=== PATIENT | male | born 1975 | race Caucasian/White ===

== ENCOUNTER 2016-08-04 12:55 | Inpatient (IN) | payer OTHER ==
[~2016-08-04] VITALS: Ht 167.6 cm; Wt 91.6 kg
[2016-08-04 13:12] VITALS: BP 109/68
--- NOTE | 2016-08-04 14:41 | NUR ---
Pt brought from US via w/c and placed into bed 8.
--- NOTE | 2016-08-04 14:46 | NUR ---
41/M presents to ED for evaluation of right testicle pain x 4 days. Pt describes the swelling and pain as a sudden onset. Denies any injury. Pt c/o 8/10 pain, 10/10 when ambulating, throbbing, radiating to right groin, constant pain. Pt also reports having an umbilical hernia. Denies N/V/D. Denies any painful or burning urination. Pt is AOX4, ambulatory with steady gait. Pt states "I was being stubborn and didn't want to come." VSS. is at bedside. Hx umbilical hernia
--- NOTE | 2016-08-04 14:53 | NUR ---
Patient placed into a gown and in position of comfort. Awaiting ERMD.
--- NOTE | 2016-08-04 15:24 | NUR ---
Patient being evaluated by Dr. Sellers at bedside.
[2016-08-04] MEDS ORDERED: CIPROFLOXACIN 250 MG TAB PO ONE (15:35)
--- NOTE | 2016-08-04 15:52 | NUR ---
Pt ambulated to restroom to provide UA.
[2016-08-04] MEDS ORDERED: HYDROmorphone 1 MG/ML AMP IVP ONE ×2 (15:55→16:45)
--- NOTE | 2016-08-04 15:59 | NUR ---
Dr. Sellers speaking with patient at bedside after consulting with urologist.
--- NOTE | 2016-08-04 16:40 | NUR ---
Pt is feeling much better and pain is now 0/10. Dr. Sellers had spoken with patient and gave him the option of being admitted for pain control or going home. Pt is requesting to be admitted for pain control. Dr. Sellers made aware. I informed the patient that we would start the process of admitting him. Pt and his verbalized understanding.
[2016-08-04] MEDS ORDERED: DOCUSATE SODIUM 100 MG GELCAP PO PRN (16:55)
[2016-08-04] MEDS ORDERED: ONDANSETRON 4 MG/2 ML VIAL IVP PRN (17:15)
[2016-08-04] MEDS ORDERED: HYDROcodone/APAP 7.5/325 MG 1 TAB PO PRN (17:15)
[2016-08-04] MEDS ORDERED: ZOLPIDEM 5 MG TAB PO PRN (17:15)
--- NOTE | 2016-08-04 17:19 | NUR ---
X-Ray at bedside.
--- NOTE | 2016-08-04 17:35 | NUR ---
Patient will be admitted to care of Dr. Khalil. Admited to TELE. Will go to room 122-B. Belongings list completed. Report to Aba ROE.
--- NOTE | 2016-08-04 17:35 | NUR ---
REPORT RECEIVED BY PHONE FROM REMOTE SENSING SCIENTIST. PT TO BE ADMITTED TO 122B ON TELEMETRY.
--- NOTE | 2016-08-04 18:10 | NUR ---
PT NOTED TO BE AAOX4 AND VOICED NO C/O PAIN. PT PUT ON TELE#21 , VITAL SIGNS STABLE. T97.8 HR 64 RR-18 BP 123/74 O2 SAT 97% ON ROOM AIR AND NO C/O PAIN VOICED AT THIS TIME. PT ORIENTATED TO STAFF, UNIT AND ROUTINE AND PT VERBALIZED UNDERSTANDING. DR. WALLACE WAS IN TO SEE PT AND LEFT ORDERS.
--- NOTE | 2016-08-04 19:10 | NUR ---
REPORT GIVEN TO FRANCHESCA ROE. PT AAOX4 AND VOICED NO C/O PAIN AT THIS TIME.
--- NOTE | 2016-08-04 19:12 | NUR ---
RECEIVED REPORT FROM DAY RN FOR CONTINUITY OF CARE. PATIENT IS A&OX4, DISCUSSED PLAN OF CARE WITH PATIENT, VERBALIZED UNDERSTANDING. SHIFT ASSESSMENT DONE, VS TAKEN, STABLE. NO S/S OF RESPIRATORY DISTRESS NOTED ON ROOM AIR. PATIENT DENIES PAIN AT THIS TIME. IV TO LEFT HAND 20 GAUGE PATENT AND INFUSING FLUIDS WELL. SKIN INTACT. MRSA SWAB COLLECTED. SAFETY PRECAUTIONS ENFORCED. CALL LIGHT WITHIN REACH. AT BEDSIDE. WILL CONTINUE TO MONITOR
[2016-08-04 20:00] VITALS: BP_SYST 105; BP_SYST 123; BP_DIAS 62; BP_DIAS 93
[2016-08-04] MEDS: NACL 0.9% 1,000 ML IV SCH ×2 (21:01→23:30)
[2016-08-04] MEDS: HYDROmorphone 1 MG/ML AMP IVP PRN (21:20)
--- NOTE | 2016-08-04 21:20 | NUR ---
PT C/O PAIN TO GROIN AREA, MEDICATED PER MD ORDER. VS STABLE. WILL CONTINUE TO MONITOR.
--- NOTE | 2016-08-04 22:26 | NUR ---
SPOKE WITH FRANNIE FROM [facility], PER PT HE DOES NOT HAVE FULL BLADDER AT THIS TIME. INFORMED [facility] THEY WILL RESCHEDULE FOR AM. WILL FOLLOW UP WITH .
[2016-08-04] MEDS ORDERED: MAGNESIUM OXIDE 400 MG TAB PO SCH (22:30)
--- NOTE | 2016-08-04 22:59 | NUR ---
SPOKE WITH DR. AVILA REGARDING [facility] BEING RESCHEDULED TO AM. DOCTOR AWARE, VERBALIZED AGREEMENT.
[2016-08-05] VITALS: BP 105/62
--- NOTE | 2016-08-05 00:08 | NUR ---
VS TAKEN, STABLE. PT IS NOW SLEEPING. CALL LIGHT WITHIN REACH.
--- NOTE | 2016-08-05 02:03 | NUR ---
PT IS SLEEPING. NO S/S OF DISTRESS OR DISCOMFORT NOTED. CALL LIGHT IN REACH.
--- NOTE | 2016-08-05 03:48 | NUR ---
PT AMBULATED TO RESTROOM, VOIDED. PT C/O HEADACHE MEDICATED WITH NORCO PER MD ORDER. NOW IN BED RESTING. WILL CONTINUE TO MONITOR.
[2016-08-05 04:00] VITALS: BP 103/57
--- NOTE | 2016-08-05 06:05 | NUR ---
PT IS AWAKE WATCHING TELEVISION. NO S/S OF DISTRESS OR DISCOMFORT NOTED. WILL CONTINUE TO MONITOR.
--- NOTE | 2016-08-05 07:10 | NUR ---
ENDORSED PATIENT TO DAY RN FOR CONTINUITY OF CARE, PATIENT IS IN STABLE CONDITION.
[2016-08-05] MEDS: NACL 0.9% 1,000 ML IV SCH ×3 (07:33→21:51)
--- NOTE | 2016-08-05 07:40 | NUR ---
RECEIVED PT SLEEPING COMFORTABLY IN BED AND WAS EASILY AROUSABLE. PT VOICED NO C/O PAIN AT THIS TIME. SHIFT ASSESSMENT DONE AND CHARTED. PLAN OF CARE, MEDS, TREATMENTS AND SAFETY DISCUSSED WITH PT AND PT VERBALIZED UNDERSTANDING WILL CONTINUE TO CHECK ON PT.
[2016-08-05 08:00] VITALS: BP 94/57
--- NOTE | 2016-08-05 08:36 | NUR ---
PATIENT HAS BEEN SCREENED AND CATEGORIZED LOW NUTRITION RISK. PATIENT WILL BE SEEN WITHIN 7 DAYS OF ADMISSION. 08/11/[address]
[2016-08-05] MEDS ORDERED: LEVOFLOXACIN 500 MG/D5W PREMIX 100 ML IV SCH (09:00)
--- NOTE | 2016-08-05 09:00 | NUR ---
PT TOOK DEIT AND FLUIDS WELL. PT WENT BACK TO SLEEP AFTER.
--- NOTE | 2016-08-05 09:25 | NUR ---
CM NOTE INITIAL REVIEW SENT TO [facility] FAX# [phone] PH# [phone]
[2016-08-05] MEDS: LEVOFLOXACIN 750 MG/D5W PREMIX 150 ML IV SCH (10:02)
[2016-08-05 12:00] VITALS: BP 103/61
--- NOTE | 2016-08-05 12:30 | NUR ---
PT RESTING IN BED MOST AM. NO C/O PAIN/ DISCOMFORT VOICED BY PT AT THIS TIME. PT AMBULATING IN THE ROOM WITH STEADY GAIT.
[2016-08-05 16:00] VITALS: BP 101/62
--- NOTE | 2016-08-05 16:30 | NUR ---
PT NOTED TO BE SLEEPING AT THIS TIME. NO CHANGES NOTED IN PT'S CONDITION.
--- NOTE | 2016-08-05 18:30 | NUR ---
PT'S VISTING AT THIS TIME. NO C/O PAIN VOICED BY PT.
--- NOTE | 2016-08-05 19:15 | NUR ---
REPORT GIVEN TO FRANCHESCA REO AT BEDSIDE. PT'S CONDITION STABLE.
--- NOTE | 2016-08-05 19:20 | NUR ---
RECEIVED REPORT FROM DAY RN FOR CONTINUITY OF CARE. PATIENT IS A&OX4, DISCUSSED PLAN OF CARE WITH PATIENT AND FAMILY MEMBERS AT BEDSIDE, VERBALIZED UNDERSTANDING. SHIFT ASSESSMENT DONE, VS TAKEN, STABLE AT THIS TIME. NO S/S OF RESPIRATORY DISTRESS NOTED ON ROOM AIR. PATIENT STATES TOLERABLE PAIN AT THIS TIME. IV TO LEFT HAND 20 GAUGE PATENT AND INFUSING FLUIDS WELL. SKIN INTACT. SAFETY PRECAUTIONS ENFORCED. CALL LIGHT WITHIN REACH. FAMILY MEMBERS AT BEDSIDE. WILL CONTINUE TO MONITOR.
[2016-08-05 20:00] VITALS: BP 117/65
[2016-08-05] MEDS: HYDROmorphone 1 MG/ML AMP IVP PRN (21:18)
--- NOTE | 2016-08-05 21:18 | NUR ---
PT C/O 11/09 PAIN, MEDICATED PER MD ORDER. REPLACED IV FLUIDS. WILL CONTINUE TO MONITOR.
--- NOTE | 2016-08-05 22:15 | NUR ---
PT AMBULATING AROUND HALLWAY X2, TOLERATING WELL.
[2016-08-06] VITALS: BP 98/56
--- NOTE | 2016-08-06 00:03 | NUR ---
VS TAKEN, STABLE. PT UP TO USE RESTROOM, VOIDED. NOW RESTING IN BED. WILL CONTINUE TO MONITOR.
--- NOTE | 2016-08-06 01:44 | NUR ---
PT IS SLEEPING. NO S/S OF DISTRESS OR DISCOMFORT NOTED. WILL CONTINUE TO MONITOR.
[2016-08-06] MEDS: NACL 0.9% 1,000 ML IV SCH ×2 (03:42→09:06)
--- NOTE | 2016-08-06 03:58 | NUR ---
VS TAKEN, STABLE. PATIENT IS NOW SLEEPING. NO S/S OF DISTRESS OR DISCOMFORT NOTED. WILL CONTINUE TO MONITOR.
[2016-08-06 04:00] VITALS: BP 106/61
--- NOTE | 2016-08-06 06:07 | NUR ---
PT IS SLEEPING. NO S/S OF DISTRESS OR DISCOMFORT NOTED. WILL CONTINUE TO MONITOR.
--- NOTE | 2016-08-06 07:26 | NUR ---
ENDORSED PATIENT TO VALENCIA ROE FOR CONTINUITY OF CARE, PATIENT IS IN STABLE CONDITION.
--- NOTE | 2016-08-06 07:27 | NUR ---
RECEIVED REPORT FROM THE NIGHTSNHFT NURSE. PT IS AWAKE AND ORIENTED. I INTRODUCED MYSELF AND UPDATED THE BOARD. PT V/S WITHIN NORMAL RANGE. DENIES PAIN. WANTED TO KNOW IF HE WOULD BE DC'D TODAY. I TOLD PT NO DC ORDERS OF YET. THE DRS WILL BE ROUNDING SOON. THEY WILL LET PT KNOW WHAT THE PLAN IS FOR TODAY. PT STILL HAS A UROLOGY CONSULT PENDING. WILL CONTINUE TO MONITOR PT.
[2016-08-06 08:00] VITALS: BP 114/75
--- NOTE | 2016-08-06 08:50 | NUR ---
CM NOTE CONCURRENT REVIEW SENT TO [facility] FAX# [phone] # [phone] Addendum: 08/06/16 at 0851 by Nicki Grullon CM REF# [id number]
[2016-08-06] MEDS: LEVOFLOXACIN 750 MG/D5W PREMIX 150 ML IV SCH (09:05)
--- NOTE | 2016-08-06 09:10 | NUR ---
ADMINISTERED MORNING ANTIBIOTIC IVPB AND A NEW BAG OF NS. PT HAS NO COMPLAINTS. DENIES PAIN. JUST ARRIVED. WOULD LIKE TO TAKE A SHOWER. WILL ASK FOR AN ORDER. WILL CONTINUE TO MONITOR PT.
--- NOTE | 2016-08-06 10:58 | NUR ---
PT IS RESTING COMFORTABLY. NO COMPLAINTS AT THIS TIME. WILL CONTINUE TO MONITOR PT.
[2016-08-06] MEDS: HYDROmorphone 1 MG/ML AMP IVP PRN (11:48)
[2016-08-06 12:00] VITALS: BP 110/61
--- NOTE | 2016-08-06 13:00 | NUR ---
PT RESTING COMFORTABLY WITH SPOUSE AT BEDSIDE. PT HAS NO COMPLAINTS. WILL CONTINUE TO MONITOR PT.
[2016-08-06] MEDS ORDERED: LEVAQUIN750 MG PO (13:27)
--- NOTE | 2016-08-06 14:30 | NUR ---
SAW ORDERS FOR DC. WILL START ON DISCHARGE PROCESS.
--- NOTE | 2016-08-06 15:00 | NUR ---
D/C INSTRUCTIONS GIVEN. PT AND SPOUSE VERBALIZED UNDERSTANDING. ANSWERED ALL QUESTIONS. SIGNED ALL APPROPRIATE PAPERWORK. REMOVED THE IV, CANNULA INTACT. REMOVED THE ARM BANDS. PT GATHERED ALL PERSONAL BELONGINGS. CHANGED INTO HIS OWN CLOTHES. CALLED [employer] TO COME WITH A WHEEL CHAIR TO WHEEL PT OUT.
--- NOTE | 2016-08-06 15:03 | NUR ---
SCHEDULE ANALYST WHEELED PT OUT ACCOMPANIED BY SPOUSE. THEY HAVE ALL THEIR PERSONAL BELONGINGS. PT IS IN STABLE CONDITION.
== END 2016-08-06 15:00 | disposition home or self-care (01) | DRG 501 ==
LOC: MED 12:55 → MTU 17:10
PROVIDERS: ADMIT Family Medicine; ATTEND Family Medicine
DX: N45.3 Epididymo-orchitis (principal); E83.42 Hypomagnesemia; E66.9 Obesity, unspecified; Z53.29 Procedure and treatment not carried out because of patient's decision for other reasons; W18.30XA Fall on same level, unspecified, initial encounter; R31.9 Hematuria, unspecified; Z68.33 Body mass index [BMI] 33.0-33.9, adult; Y93.89 Activity, other specified; Y92.89 Other specified places as the place of occurrence of the external cause; Y99.8 Other external cause status; Z72.89 Other problems related to lifestyle

== ENCOUNTER 2017-05-13 18:34 | Emergency (ER) | payer SELFPAY ==
[~2017-05-13] VITALS: Ht 167.6 cm; Wt 99.3 kg
[~2017-05-13 18:34] MED LIST: LEVO750T2 PO
[2017-05-13 19:42] VITALS: BP 115/85
[2017-05-13 19:47] VITALS: BP 115/85
--- NOTE | 2017-05-13 19:47 | NUR ---
TO LOBBY, A/W , TITO, ALISIA, MICHAEL NOTED
--- NOTE | 2017-05-13 20:16 | NUR ---
TO ER OF4
--- NOTE | 2017-05-13 20:17 | NUR ---
PATIENT IS A 42 Y/O MALE WHO PRESENTS TO THE ED C/O COUGH. PT STATES, "I HAVEN'T BEEN ABLE TO BREATHE FOR ABOUT 5 DAYS NOW." PT REPORTS 8/10 ACHING CHEST PAIN THAT DOES NOT RADIATE. PT DENIES SOB, N/V/D. PT AAOX4, RR EVEN/UNLABORED. PT REPOSITIONED FOR COMFORT, BED IN LOWEST POSITION. ER MD DR. SKELTON NOTIFIED. WILL CONTINUE TO MONITOR.
--- NOTE | 2017-05-13 22:06 | NUR ---
PATIENT LEFT WITHOUT BEING SEEN BY DR. SKELTON. NO FURTHER CARE PROVIDED FOR PATIENT.
== END 2017-05-13 22:06 | disposition left against medical advice (07) ==
LOC: MED 18:34
DX: R09.89 Other specified symptoms and signs involving the circulatory and respiratory systems (principal); Z53.21 Procedure and treatment not carried out due to patient leaving prior to being seen by health care provider

== ENCOUNTER 2019-05-28 20:58 | Emergency (ER) | payer MEDICAID ==
[~2019-05-28] VITALS: Ht 167.6 cm; Wt 108.9 kg
[2019-05-28 21:10] VITALS: BP 136/80
--- NOTE | 2019-05-28 21:13 | NUR ---
TO LOBBY A/W BED , AMBULATORY
--- NOTE | 2019-05-28 22:06 | NUR ---
PT AMBULATED TO BED 12 WITH SPOUSE
--- NOTE | 2019-05-28 22:11 | NUR ---
44 Y/O MALE PRESENTS TO ED, C/O RIGHT ARM PAIN 12/10. PT STATES PAIN STARTED 2 WEEKS AGO AND WORSENING. PAIN DOES NOT RADIATE. STATES PAIN IS SHARP. TAKES TYLENOL AND MOTRIN WITH NO RELIEF. BILAT STRONG BLENDING COORDINATOR STRENGHT. BILAT STRONG RADIAL PULSES. FULL ROM ON AFFECTED EXTREMITY. PT DENIES ANY CHEST PAIN. PT VSS. ERMD AWARE. WILL CONTINUE TO MONITOR.
--- NOTE | 2019-05-28 23:08 | NUR ---
PT SITTING IN BED, RR EVEN AND UNLABORED. FAMILY AT BEDSIDE. VSS. WILL CONTINUE TO MONITOR
[2019-05-28 23:17] VITALS: BP 136/80
--- NOTE | 2019-05-28 23:18 | NUR ---
Patient discharged with v/s stable. Written and verbal after care instructions given and explained. Patient alert, oriented and verbalized understanding of instructions. Ambulatory with steady gait. All questions addressed prior to discharge. ID band removed. Patient advised to follow up with PMD. Rx of FLEXERIL AND IBURPROFEN given. Patient educated on indication of medication including possible reaction and side effects. Opportunity to ask questions provided and answered.
== END 2019-05-28 23:18 | disposition home or self-care (01) ==
LOC: MED 20:58
DX: M77.9 Enthesopathy, unspecified (principal); Z79.2 Long term (current) use of antibiotics
CPT/HCPCS: 73060; 99283

== ENCOUNTER 2019-10-09 10:22 | Emergency (ER) | payer SELFPAY ==
[~2019-10-09] VITALS: Ht 170.2 cm; Wt 105.2 kg
--- NOTE | 2019-10-09 10:28 | NUR ---
Taken to bed 4 via w/c
[2019-10-09 10:31] VITALS: BP 134/96
[2019-10-09] MEDS ORDERED: KETOROLAC 60 MG/2 ML VIAL IM ONE (10:40)
--- NOTE | 2019-10-09 10:45 | NUR ---
PT C/O RT KNEE PAIN X 1 WK, DENIES TRAUMA/INJURY. +CMS. PT STATES HE WORKS WITH [employer] AND [employer] DAILY WHICH HE BELIVES AGGRAVATED HIS KNEE. PAIN 10/10 IN SEVERITY. PT ALERT AND AWAKE, REQUESTED TO BE WHEELCHAIRED TO BED DUE TO WORSENIGN PAIN WITH WALKING. VS STABLE. MEDHX: DENIES
--- NOTE | 2019-10-09 10:49 | NUR ---
TORADOL IM ADMINISTERED
--- NOTE | 2019-10-09 11:05 | NUR ---
NADR, PAIN 10/10. INSTRUCTED PT THAT TORADOL MAY TAKE MORE TIME TO HAVE FULL EFFECT IN REGARDS TO DECREASING PAIN. PT INSTRUCTED TO APPLY ICE AT HOME FOR PAIN RELIEF AND THAT HE WILL ALSO BE SENT HOME WITH PAIN MEDICATIONS
[2019-10-09 11:09] VITALS: BP 140/84
--- NOTE | 2019-10-09 11:09 | NUR ---
Patient discharged with v/s stable. Written and verbal after care instructions given and explained. Patient alert, oriented and verbalized understanding of instructions. WHEELCHAIRED TO VEHICLE. All questions addressed prior to discharge. ID band removed. Patient advised to follow up with PMD. Rx of NORCO AND MOTRIN given. Patient educated on indication of medication including possible reaction and side effects. Opportunity to ask questions provided and answered. PT INSTRUCTED TO APPLY ICE AND ELEVATE KNEE. PT ISNTRUCTED TO NOT DRIVE AFTER TAKING NORCO IT MAY CAUSE DROWSINESS
--- NOTE | 2019-10-09 11:09 | NUR ---
PT GIVEN EXCUSE FOR WORK AND ISNTRUCTED TO AVOID HEAVY LIFTING
== END 2019-10-09 11:09 | disposition home or self-care (01) ==
LOC: MED 10:22
DX: M25.561 Pain in right knee (principal)
CPT/HCPCS: 96372; 99283; J1885